=== PATIENT | female | born 1955 | race Caucasian/White ===

== ENCOUNTER 2020-06-17 18:27 | Emergency (ER) | payer SELFPAY | END 2020-06-17 21:07 | disposition left against medical advice (07) | PROVIDERS: Emergency Provider Emergency Medicine; PCP Family Medicine | DX: M79.89 Other specified soft tissue disorders (principal) ==

== ENCOUNTER → 2023-12-07 14:29 | Outpatient (REF) | payer MEDICARE, SELFPAY ==
--- NOTE | 2023-12-07 14:36 | CA_ITS ---
Transthoracic Echocardiogram Patient (Last, First, Middle): Shelley Parisi Ann Gender: Female Date of : 1955 Age: 68 Procedure Date: 12/07/2023 Procedure Type: Transthoracic Echocardiogram Location: OP Height: 165.1 cm Weight: 83.92 kg BSA: 1.91 m2 Heart Rate: bpm BP: 120 / 76 mmHg Waiter: ERIC Referring MD: Tre Jacobs MD Symptoms: SOB R06.2 MURMUR R01.1 Study Quality: Adequate, with contrast ECG Rhythm: Sinus Conclusions: - The left ventricular systolic function is normal. The calculated ejection fraction is 64% by biplane method. - No obvious valvular pathology seen on this study. - There is no evidence of interatrial shunt by agitated saline. Findings Procedure Information Contrast agent, definity, is being given per protocol without apparent complications. Left Ventricle Normal left ventricular cavity size. The left ventricular systolic function is normal. The calculated ejection fraction is 64% by biplane method. There is no evidence of regional wall motion abnormalities. Evidence suggests grade I (mild) diastolic dysfunction. There is mild septal asymmetric hypertrophy. Right Ventricle Normal right ventricular cavity size and systolic function. Atria Both atria are normal in size. There is no evidence of interatrial shunt by agitated saline. With rest and valsalva. Aortic Valve There is a normal trileaflet aortic valve. There is no aortic valve stenosis. There is no aortic valve regurgitation. Mitral Valve There is mild anterior mitral leaflet thickening. There is trace mitral valve regurgitation. There is no mitral valve stenosis. Pulmonic Valve There is trace pulmonic valve regurgitation. Tricuspid Valve There is trace tricuspid valve regurgitation. Tricuspid regurgitation envelope is inadequate for calculation of right ventricular systolic pressure. Great Vessels The asc aorta is normal in size. Venous The inferior vena cava is normal in size and collapses greater than 50% with inspiration. Pericardium/Pleural There is no evidence of pericardial effusion. Prior Study Comparison No prior study available for comparison. Recommendations, Care & Conclusions No obvious valvular pathology seen on this study. Measurements 2D Linear Measurements IVSd: 1.15 0.6-0.9/0.6-1.0 cm LVIDd: 4.22 3.9-5.3/4.2-5.9 cm LVIDd Index: 2.21 2.4-3.2/2.2-3.1 cm/m2 LVIDs: 2.88 2.0-3.6 cm LVPWd: 1.01 0.7-1.1 cm LA Diam: 3.90 2.7-3.8/3.0-4.0 cm LAIDs Index: 2.04 1.5-2.3 cm/m2 LV Mass: 191.92 67-162/88-224 g LV Mass Index: 100.48 43-95/49-115 g/m2 LVOT Diam: 2.10 3.0+(-)1.3 cm 2D Systolic Function EF 4C: 58.00 >55% EF 2C: 69.80 >55% EF BiP: 63.70 >55% Mitral Valve MV Pk E: 0.74 MV PK A: 0.93 MV Decel Time: 286.00 E/A: 0.80 E'Lateral: 7.07 E'Medial: 4.90 E/E' Med: 15.10 E/E' Lat: 10.50 PHT: 84.00 MVA PHT: 2.62 Decel [place]: 2.59 Aortic Valve AoV Pk Shimon: 1.48 AoV Mn Shimon: 0.98 AoV VTI: 0.29 AoV Pk Grad: 9.00 Aov Mn Grad: 4.00 EYAD Cont.VTI: 2.62 LVOT LVOT Pk Shimon: 1.01 LVOT Mn Shimon: 0.66 LVOT VTI: 0.22 LVOT Pk Grad: 4.00 LVOT Mn Grad: 2.00 LVOT Diam: 2.10 LVOT Area: 3.46 Diastolic Function MV Pk E: 0.74 MV Pk A: 0.93 E/A: 0.80 E'Medial: 4.90 E/E' Med: 15.10 E' Laterial: 7.07 E/E' Lat: 10.50 Right Ventricle TAPSE (mm): 24.30 TVS' Shimon: 12.30 Tricuspid Valve RA Press: 3.00 Great Vessels Aorta Sinus of Valsalva: 3.06 2.0-3.[address] Ridge: 2.63 1.7-3.4 cm Ao Asc: 3.10 2.1-3.4 cm Updated in Other Vendor System with Status of Final Iam Gates MD electronically signed on 12/08/2023 3:09:02 PM with status of Final
== END ==
LOC: HO.CARD 14:29
PROVIDERS: PCP Internal Medicine; Visit Provider Internal Medicine
DX: R01.1 Cardiac murmur, unspecified (principal); R06.02 Shortness of breath
CPT/HCPCS: 93306; Q9957

== ENCOUNTER → 2023-12-07 14:36 | Outpatient (BNV) | payer MEDICARE, SELFPAY | PROVIDERS: PCP Internal Medicine; Visit Provider Internal Medicine | DX: I42.2 Other hypertrophic cardiomyopathy (principal) | CPT/HCPCS: 93306 ==